=== PATIENT | male | born 2000 | race African-American/Black ===

== ENCOUNTER 2022-05-03 19:33 | Emergency (ER) | payer OTHER ==
[~2022-05-03 19:33] MED LIST: BACTRIM DS1 TAB PO
[2022-05-03 19:57] VITALS: BP 124/82
[2022-05-03 20:16] LABS: HEMATOCRIT 36.1 % (39.0-50.0); HEMOGLOBIN 12.1 g/dl (14.0-18.0); IMMATURE GRANULOCYTES 0.4 % (0.0-5.0); MEAN CELL VOLUME 89.4 fL CALC (80.0-100.0); MEAN CORPUSCULAR HGB CONC 33.5 g/dL CAL (32.0-36.0); NEUT# 3.37 thou/uL (1.82-7.42); RED BLOOD COUNT 4.04 mill/uL (4.70-6.10); RED CELL DISTRI WIDTH 12.8 % (11.5-15.5)
[2022-05-03 20:32] LABS: ALBUMIN 4.4 g/dL (3.2-5.0); ALKALINE PHOSPHATASE 77 u/l (38-126); ANION GAP 12 (6-22 (CALC)); BILIRUBIN, TOTAL 0.4 mg/dL (0.0-1.4); BUN 10 mg/dL (9-20); BUN/CREATININE RATIO 11 (12-20 (CALC)); CARBON DIOXIDE 24 mmol/l (22-30); CHLORIDE 102 mmol/l (95-108); CREATININE 0.9 mg/dL (0.7-1.3); GFR FOR AFR.AMER. > 60 ML/MIN (>=60 (CALC)); GFR OTHER RACES > 60 ML/MIN (>=60 (CALC)); POTASSIUM 3.7 mmol/l (3.5-5.1); SGOT/AST 24 u/l (17-59); SODIUM 135 mmol/l (137-146); TOTAL PROTEIN 7.4 g/dL (6.3-8.2)
[2022-05-03 20:41] LABS: INTERNATIONAL NORMALIZED RATIO 1.2 RATIO (0.7-1.3); PROTHROMBIN TIME 11.5 SECONDS (9.0-12.5)
[2022-05-03 23:12] VITALS: BP 138/88
[2022-05-03 23:15] VITALS: BP 153/94
[2022-05-03 23:30] VITALS: BP 143/95
[2022-05-03 23:45] VITALS: BP 128/85
[2022-05-04] VITALS: BP 140/82
== END 2022-05-04 00:13 | DRG 605 ==
LOC: ED 19:33
PROVIDERS: Family Medicine
DX: S21.112A Laceration without foreign body of left front wall of thorax without penetration into thoracic cavity, initial encounter (principal); J91.8 Pleural effusion in other conditions classified elsewhere; I10 Essential (primary) hypertension; X99.8XXA Assault by other sharp object, initial encounter; Y92.149 Unspecified place in prison as the place of occurrence of the external cause
CPT/HCPCS: Q9967